=== PATIENT | male | born 1980 | race African-American/Black ===

== ENCOUNTER 2016-09-06 20:34 | Emergency (ER) | payer OTHER ==
[~2016-09-06] VITALS: Ht 177.8 cm; Wt 110.7 kg
[~2016-09-06 20:34] MED LIST: ADVAIR 250/501 DISK; CLARITIN10 M1; NUBAIN; PROCHLORPER5 MG/1 ML; PSEUDOEPHEDRINE60 MG; REGLAN10 M1; VENTOLIN HFA18 GM; ZANTAC300 MG
[2016-09-06 22:46] VITALS: BP 122/70
== END 2016-09-06 22:56 ==
LOC: EME → EDBD 20:34 → EME 22:56
DX: T78.01XA Anaphylactic reaction due to peanuts, initial encounter (principal); J45.909 Unspecified asthma, uncomplicated; Z91.010 Allergy to peanuts; Z88.8 Allergy status to other drugs, medicaments and biological substances
CPT/HCPCS: 93005; 99281; 99284; J2405; J7644